=== PATIENT | male | born 1985 ===

== ENCOUNTER 2020-02-18 02:47 | Emergency (ER) | payer OTHER ==
[2020-02-18 03:05] VITALS: TEMP 97
--- NOTE | 2020-02-18 03:09 | ED ---
Syncope HPI - General Chief Complaint: Dizziness Stated Complaint: Dizziness Time Seen by Provider: 02/18/20 03:02 Source: patient, EMS, RN notes reviewed, old records reviewed Mode of arrival: EMS Limitations: no limitations - History of Present Illness Initial Comments: This is a 34-year-old male to the ER for evaluation presents today for syncopal event significantly stress reaction here in the ER. [place] border patrol patient was found of drug paraphernalia in the back and then had a syncopal event no injury, patient has no medical history takes no medications admits increased stress, no headache chest pain shortness breath or abdominal pain MD Complaint: loss of consciousness, almost passed out -: days(s) Prodromal Symptoms: none Description of Event: other (none) -: second(s) Witnessed: yes - by bystander, yes - by other (PD, border patrol) Injuries Sustained Associated with Event: None Current Symptoms: lightheaded History: other (none) Context: at rest Treatments Prior to Arrival: none Review of Systems ROS Statement: Those systems with pertinent positive or pertinent negative responses have been documented in the HPI. ROS Other: All systems not noted in ROS Statement are negative. Past Medical History Past Medical History: No Reported History History of Any Multi-Drug Resistant Organisms: None Reported Past Surgical History: No Surgical Hx Reported Past Psychological History: No Psychological Hx Reported Smoking Status: Never smoker Past Alcohol Use History: Occasional Past Drug Use History: None Reported General Exam Limitations: no limitations General appearance: alert, in no apparent distress Head exam: Present: atraumatic, normocephalic, normal inspection Eye exam: Present: normal appearance, PERRL, EOMI. Absent: scleral icterus, conjunctival injection, periorbital swelling ENT exam: Present: normal exam, mucous membranes moist Neck exam: Present: normal inspection. Absent: tenderness, meningismus, lymphadenopathy Respiratory exam: Present: normal lung sounds bilaterally. Absent: respiratory distress, wheezes, rales, rhonchi, stridor Cardiovascular Exam: Present: regular rate, normal rhythm, normal heart sounds. Absent: systolic murmur, diastolic murmur, rubs, gallop, clicks GI/Abdominal exam: Present: soft, normal bowel sounds. Absent: distended, tenderness, guarding, rebound, rigid Extremities exam: Present: normal inspection, full ROM, normal capillary refill. Absent: tenderness, pedal edema, joint swelling, calf tenderness Back exam: Present: normal inspection Neurological exam: Present: alert, oriented X3, CN II-XII intact Psychiatric exam: Present: normal affect, normal mood Skin exam: Present: warm, dry, intact, normal color. Absent: rash Course Vital Signs 02/18/20 02:51 Temperature 97.0 F L Pulse Rate 77 Respiratory 20 Rate Blood Pressure 142/97 O2 Sat by Pulse 97 Oximetry - Reevaluation(s) Reevaluation #1: 02/18/20 03:13 medical record is reviewed Reevaluation #2: 02/18/20 03:13 Patient has no complaints no headache chest pain shortness of breath or abdominal pain, no symptoms currently EKG Findings - EKG Comments: EKG Findings:: EKG shows sinus rhythm of 61, ND 164, QRS 80, QTC 408 Disposition Clinical Impression: Syncope, Stress reaction Disposition: HOME SELF-CARE Condition: Good Instructions (If sedation given, give patient instructions): Stress (ED) Is patient prescribed a controlled substance at d/c from ED?: No Referrals: None,Stated [Primary Care Provider] - 1-2 days
[2020-02-18 04:33] VITALS: BP 141/85; PULSE 90; RESP 18
== END 2020-02-18 04:25 | disposition home or self-care (01) ==
LOC: EC 02:47
DX: F43.0 Acute stress reaction (principal); R55 Syncope and collapse
CPT/HCPCS: 99285